=== PATIENT | male | born 1935 | race Caucasian/White ===

== ENCOUNTER 2019-08-10 17:01 | Inpatient (IN) | payer OTHER ==
[~2019-08-10] VITALS: Ht 182.9 cm; Wt 109.8 kg
[~2019-08-10 17:01] MED LIST: ATOR20TA65 PO; FINA5TAB41 PO; GLIP5TAB11 PO; LISI-613 PO; METF-446 PO; METO50TA18 PO
[2019-08-10 17:57] LABS: BASOPHILS % (AUTO) 0.3 % (0.0-5.0); HEMATOCRIT 43.2 % (42-54); LYMPHOCYTES % (AUTO) 10.6 % (21.0-51.0); MEAN CORPUSCULAR HEMOGLOBIN 27.7 pg (27.0-33.0); MEAN CORPUSCULAR HGB CONC 32.4 g/dL (32.0-36.0); MEAN CORPUSCULAR VOLUME 85.4 fL (79-99); MONOCYTES % (AUTO) 7.2 % (3.0-13.0); NEUTROPHILS % (AUTO) 80.4 % (40.0-77.0); PLATELET COUNT (AUTO) 152 K/uL (130-400); RED BLOOD CELL COUNT(AUTO) 5.06 MIL/uL (4.50-6.20); RED CELL DISTRIBUTION WIDTH 14.1 % (11.0-15.5); WHITE BLOOD COUNT (AUTO) 11.7 K/uL (4.8-10.8)
[2019-08-10 18:11] LABS: CARBON DIOXIDE 31 mmol/L (21-32); CHLORIDE 97 mmol/L (101-111); CREATININE 1.2 mg/dL (0.5-1.5); GLOMERULAR FILTR. RATE CALC 62 mL/min (>60); GLUCOSE,RANDOM 241 mg/dL (70-105); POTASSIUM 3.9 mmol/L (3.5-5.1); SODIUM SERUM 136 mmol/L (136-145); UREA NITROGEN, BLOOD 19 mg/dL (7-18)
[2019-08-10] MEDS ORDERED: CEFTRIAXONE SODIUM 2 GM VIAL ONE (18:12)
[2019-08-10 18:13] LABS: INR 0.92 (0.85-1.15); PARTIAL THROMBOPLASTIN TIME 25.9 SEC (26.3-35.5)
[2019-08-10 18:23] LABS: ALANINE AMINOTRANSFERASE 21 U/L (12-78); ALBUMIN 3.6 g/dL (3.5-5.0); ASPARTATE AMINOTRANSFERASE 18 U/L (10-37); BILIRUBIN,TOTAL 0.4 mg/dL (0.2-1.0); CREATINE KINASE, TOTAL 156 U/L (21-232); MYOGLOBIN 149 ng/mL (10-92); TROPONIN I < 0.04 ng/mL (0.00-0.06)
[2019-08-10 19:13] LABS: APPEARANCE,URINE Cloudy (CLEAR); BILIRUBIN,URINE Negative (NEGATIVE); COLOR,URINE Orange (YELLOW); GLUCOSE, URINE (UA) 500 mg/dL (NEGATIVE); KETONES,URINE Negative (NEGATIVE); LEUKOCYTE ESTERASE ,URINE Small (NEGATIVE); NITRATE,URINE Negative (NEGATIVE); OCCULT BLOOD,URINE Large (NEGATIVE); PROTEIN,URINE POS 2+ mg/dL (NEGATIVE)
[2019-08-10 19:40] LABS: RBC,URINE 26-50 /HPF (0-1)
[2019-08-10 19:41] LABS: BACTERIA,URINE Few /HPF (None Seen); SQUAMOUS EPITHELIAL CELL,UR Few /HPF (0-2); YEAST,URINE BUDDING Few /HPF (None Seen)
[2019-08-10] MEDS: CEFTRIAXONE SODIUM 1 GM IV SCH (22:00)
[2019-08-10] MEDS ORDERED: HYDRALAZINE HCL 20 MG/ML VIAL IV PRN (22:00)
[2019-08-10] MEDS ORDERED: ONDANSETRON HCL 4 MG/2 ML VIAL IV PRN (22:00)
[2019-08-10] MEDS ORDERED: LACTULOSE 20 GM/30 ML UDCUP PO PRN (22:00)
[2019-08-10] MEDS ORDERED: ACETAMINOPHEN 325 MG TAB PO PRN ×2 (22:00)
[2019-08-11] MEDS ORDERED: GLIP10TA9 PO (02:06)
[2019-08-11] MEDS ORDERED: METO50 PO (02:06)
[2019-08-11] MEDS ORDERED: HYDR25TA PO (02:06)
[2019-08-11] MEDS: SODIUM CHLORIDE 0.9% 1000ML 1,000 ML IV SCH ×2 (03:00→18:05)
[2019-08-11 04:00] VITALS: BP 154/65
[2019-08-11] MEDS: MORPHINE SULFATE 2 MG/ML 1ML SYG IV PRN ×5 (04:12→23:55)
[2019-08-11 06:01] LABS: BASOPHILS % (AUTO) 0.3 % (0.0-5.0); EOSINOPHILS % (AUTO) 1.8 % (0.0-8.0); HEMATOCRIT 38.7 % (42-54); LYMPHOCYTES % (AUTO) 16.7 % (21.0-51.0); MEAN CORPUSCULAR HEMOGLOBIN 26.8 pg (27.0-33.0); MEAN CORPUSCULAR HGB CONC 31.3 g/dL (32.0-36.0); MEAN CORPUSCULAR VOLUME 85.8 fL (79-99); MONOCYTES % (AUTO) 9.1 % (3.0-13.0); NEUTROPHILS % (AUTO) 71.6 % (40.0-77.0); PLATELET COUNT (AUTO) 142 K/uL (130-400); RED BLOOD CELL COUNT(AUTO) 4.51 MIL/uL (4.50-6.20); RED CELL DISTRIBUTION WIDTH 14.1 % (11.0-15.5); WHITE BLOOD COUNT (AUTO) 9.6 K/uL (4.8-10.8)
[2019-08-11 06:18] LABS: CREATININE 1.1 mg/dL (0.5-1.5); POTASSIUM 4.1 mmol/L (3.5-5.1)
[2019-08-11] MEDS: INSULIN HUMULIN R 100 UNIT/ML 3ML SQ SCH ×4 (06:45→21:07)
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
[2019-08-11 08:56] VITALS: BP 147/60
[2019-08-11] MEDS: ENOXAPARIN SODIUM 40 MG/0.4 ML SYRINGE SQ SCH (09:54)
[2019-08-11] MEDS: FAMOTIDINE 20MG TAB 20 MG TAB PO SCH ×2 (09:54→20:24)
[2019-08-11] MEDS: METFORMIN HCL 500 MG TABLET PO SCH ×2 (09:54→17:00)
--- NOTE | 2019-08-11 12:28 | NUR ---
LEILANI PLAN PATIENT IN COVID UNIT. MARGAUX WILL CONTINUE TO FOLLOW. Addendum: 08/11/19 at 1229 by HUNTER GRIDER RN CM Amended: Links added.
[2019-08-11 12:39] VITALS: BP 150/60
--- NOTE | 2019-08-11 13:00 | NUR ---
AMBULATION FROM BED TO RECLINER, GAIT SLOW WITH GAIT BELT AND UNSTEADY WITH FLACCID RT UPPER AND LOWER EXTREMITIES. PT DENIES DIZZINESS BUT DOES C/O RT RIB PAIN DUE TO RECENT FRACTURES. PT RESTING COMFORTABLY IN CHAIR. CALL LIGHT WITHIN REACH.
[2019-08-11] MEDS ORDERED: ACETAMINOPHEN-CODEINE 300/30MG TAB PO PRN (13:15)
[2019-08-11 16:31] VITALS: BP 149/64
--- NOTE | 2019-08-11 17:00 | NUR ---
AMBULATION FROM RECLINER TO BED, GAIT SLOW WITH GAIT BELT AND UNSTEADY WITH FLACCID RT UPPER AND LOWER EXTREMITIES. PT DENIES DIZZINESS BUT DOES C/O RT RIB PAIN DUE TO RECENT FRACTURES. PT RESTING COMFORTABLY IN BED. CALL LIGHT WITHIN REACH.
[2019-08-11 19:32] VITALS: BP 167/67
[2019-08-11] MEDS: CEFTRIAXONE SODIUM 1 GM IV SCH (20:24)
[2019-08-12] VITALS (7 sets, daily range): BP systolic 124–161; BP diastolic 56–69
[2019-08-12] MEDS: MORPHINE SULFATE 2 MG/ML 1ML SYG IV PRN (05:59)
[2019-08-12] MEDS: INSULIN HUMULIN R 100 UNIT/ML 3ML SQ SCH ×4 (06:06→20:53)
[2019-08-12] MEDS: FAMOTIDINE 20MG TAB 20 MG TAB PO SCH ×2 (09:47→20:31)
[2019-08-12] MEDS: HYDROCHLOROTHIAZIDE 25 MG TABLET PO SCH (09:47)
[2019-08-12] MEDS: BISACODYL 5 MG TABLET.DR PO SCH (09:47)
[2019-08-12] MEDS: METFORMIN HCL 500 MG TABLET PO SCH ×2 (09:47→17:42)
[2019-08-12] MEDS: METOPROLOL TARTRATE 50 MG TAB PO SCH ×2 (09:47→20:31)
[2019-08-12] MEDS: ENOXAPARIN SODIUM 40 MG/0.4 ML SYRINGE SQ SCH (09:48)
[2019-08-12] MEDS: SODIUM CHLORIDE 0.9% 1000ML 1,000 ML IV SCH (09:50)
[2019-08-12] MEDS: DOCUSATE SODIUM 100 MG CAP PO SCH ×2 (09:51→20:32)
--- NOTE | 2019-08-12 10:36 | NUR ---
dr. capps call and notified me that the orthopedic does not deal with the rib fracture and he is recommending the cardiothoracic surgeon. informed dr. solares about this concern.
--- NOTE | 2019-08-12 13:14 | NUR ---
DC PLAN CALLED PATIENT ROOM NO ANSWER. PERSON ON FACE SHEET IS A FRIEND. MARGAUX WILL CONTINUE TO FOLLOW. Addendum: 08/12/19 at 1315 by HUNTER GRIDER RN CM Amended: Links added.
[2019-08-12] MEDS: CEFTRIAXONE SODIUM 1 GM IV SCH (20:31)
[2019-08-12] MEDS: FINASTERIDE 5 MG TABLET PO SCH (20:31)
[2019-08-12] MEDS: ATORVASTATIN CALCIUM 20 MG TABLET PO SCH (20:32)
--- NOTE | 2019-08-12 21:00 | NUR ---
pt given pain medication. tylenol #3. pain in his ribcage area due to four rib fractures. able to stand up with 2 person assist. sob. crackles/rhonchi noted. pt has increased phlegm. white and mucoid like. Able to take medications well. on nasal cannula at 2lpm.
[2019-08-13 05:01] VITALS: BP 140/53
[2019-08-13] MEDS: INSULIN HUMULIN R 100 UNIT/ML 3ML SQ SCH ×4 (06:35→20:58)
[2019-08-13 07:21] LABS: HEMATOCRIT 37.4 % (42-54); MEAN CORPUSCULAR HEMOGLOBIN 27.9 pg (27.0-33.0); MEAN CORPUSCULAR HGB CONC 32.6 g/dL (32.0-36.0); MEAN CORPUSCULAR VOLUME 85.6 fL (79-99); PLATELET COUNT (AUTO) 140 K/uL (130-400); RED BLOOD CELL COUNT(AUTO) 4.37 MIL/uL (4.50-6.20); RED CELL DISTRIBUTION WIDTH 13.7 % (11.0-15.5); WHITE BLOOD COUNT (AUTO) 10.6 K/uL (4.8-10.8)
[2019-08-13 07:28] LABS: POTASSIUM 3.8 mmol/L (3.5-5.1)
[2019-08-13 07:55] LABS: EOSINOPHILS % (MANUAL) 1 % (1-6); LYMPHOCYTES % (MANUAL) 14 % (22-44); MAN.DIFF COMMENT-IMPRESSION MANUAL DIFFERENTIAL; MONOCYTES % (MANUAL) 6 % (2-9); PLATELET MORPHOLOGY COMMENT ADEQUATE; SEGMENTED NEUTROPHILS % 79 % (40-70)
[2019-08-13 08:32] VITALS: BP 144/56
[2019-08-13] MEDS: METOPROLOL TARTRATE 50 MG TAB PO SCH ×2 (09:25→20:31)
[2019-08-13] MEDS: FAMOTIDINE 20MG TAB 20 MG TAB PO SCH ×2 (09:25→20:31)
[2019-08-13] MEDS: DOCUSATE SODIUM 100 MG CAP PO SCH ×3 (09:25→21:13)
[2019-08-13] MEDS: METFORMIN HCL 500 MG TABLET PO SCH ×2 (09:25→16:21)
[2019-08-13] MEDS: HYDROCHLOROTHIAZIDE 25 MG TABLET PO SCH (09:26)
[2019-08-13] MEDS: BISACODYL 5 MG TABLET.DR PO SCH (09:26)
[2019-08-13] MEDS: SODIUM CHLORIDE 0.9% 1000ML 1,000 ML IV SCH (09:27)
[2019-08-13] MEDS: ENOXAPARIN SODIUM 40 MG/0.4 ML SYRINGE SQ SCH (09:27)
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
--- NOTE | 2019-08-13 12:50 | NUR ---
LEILANI ADAIR KIANA ABERNATHY [phone] CALLED BACK. SAID THAT HE IS A FRIEND THAT HELP HIM OUT FROM TIME TO TIME. WHEN EVER HE FALLS HE CALLS HIM TO GO HELP HIM. PATIENT ONLY HAS ONE SON THAT TALKS TO HIM BUT HE LIVES IN [facility]. DAD'S CALLED BACK SAID THEY WILL CALL HIM WHEN HE DISCHARGES. LET KNOW THAT PATIENT REFUSED SNF. LET PATIENT ADVOCATE KNOW ABOUT CLOTHING. ARRANGED TO HAVE DELIVERED TODAY AROUND 2PM. Addendum: 08/13/19 at 1257 by HUNTER GRIDER RN CM Amended: Links added.
[2019-08-13 13:48] VITALS: BP 130/52
[2019-08-13] MEDS: GLIPIZIDE 5 MG TABLET PO SCH (16:21)
[2019-08-13 16:30] VITALS: BP 141/49
[2019-08-13 19:53] VITALS: BP 143/51
[2019-08-13] MEDS: CEFTRIAXONE SODIUM 1 GM IV SCH (20:30)
[2019-08-13] MEDS: FINASTERIDE 5 MG TABLET PO SCH (20:30)
[2019-08-13] MEDS: ATORVASTATIN CALCIUM 20 MG TABLET PO SCH (20:31)
[2019-08-13 23:45] VITALS: BP 137/62
[2019-08-14 04:51] VITALS: BP 144/50
[2019-08-14 04:56] LABS: BASOPHILS % (AUTO) 0.3 % (0.0-5.0); EOSINOPHILS % (AUTO) 2.3 % (0.0-8.0); HEMATOCRIT 37.7 % (42-54); LYMPHOCYTES % (AUTO) 16.5 % (21.0-51.0); MEAN CORPUSCULAR HEMOGLOBIN 26.9 pg (27.0-33.0); MEAN CORPUSCULAR HGB CONC 31.8 g/dL (32.0-36.0); MEAN CORPUSCULAR VOLUME 84.5 fL (79-99); MONOCYTES % (AUTO) 7.3 % (3.0-13.0); PLATELET COUNT (AUTO) 176 K/uL (130-400); RED BLOOD CELL COUNT(AUTO) 4.46 MIL/uL (4.50-6.20); RED CELL DISTRIBUTION WIDTH 13.5 % (11.0-15.5); WHITE BLOOD COUNT (AUTO) 10.6 K/uL (4.8-10.8)
[2019-08-14] MEDS: INSULIN HUMULIN R 100 UNIT/ML 3ML SQ SCH ×4 (04:56→21:00)
--- NOTE | 2019-08-14 05:00 | NUR ---
PT DID NOT WANT INSULIN, OR MEDS FOR THE AM. HE STATED HE WANTED TO SKIP THEM BECAUSE HE WANTS TO SLEEP. HE WAS ABLE TO STAND FOR DAILY WEIGHT. PT HAS DEMONSTRATED IMPROVEMENT. HIS ACTIVITY LEVEL IS INCREASING.
[2019-08-14 05:25] LABS: POTASSIUM 3.7 mmol/L (3.5-5.1)
[2019-08-14 05:30] LABS: HEMOGLOBIN A1C 9.4 % (4.0-6.0)
[2019-08-14] MEDS: FAMOTIDINE 20MG TAB 20 MG TAB PO SCH ×2 (09:03→21:04)
[2019-08-14] MEDS: GLIPIZIDE 5 MG TABLET PO SCH ×2 (09:03→16:24)
[2019-08-14] MEDS: METOPROLOL TARTRATE 50 MG TAB PO SCH ×2 (09:03→21:04)
[2019-08-14] MEDS: BISACODYL 5 MG TABLET.DR PO SCH (09:03)
[2019-08-14] MEDS: HYDROCHLOROTHIAZIDE 25 MG TABLET PO SCH (09:03)
[2019-08-14] MEDS: DOCUSATE SODIUM 100 MG CAP PO SCH ×2 (09:03→21:04)
[2019-08-14] MEDS: METFORMIN HCL 500 MG TABLET PO SCH ×2 (09:03→16:24)
[2019-08-14] MEDS: ENOXAPARIN SODIUM 40 MG/0.4 ML SYRINGE SQ SCH (09:04)
[2019-08-14 09:05] VITALS: BP 147/59
[2019-08-14 12:15] VITALS: BP 135/54
--- NOTE | 2019-08-14 13:51 | NUR ---
LEILANI GILLILAND FRIEND CALLED TO LET CM KNOW THAT PATIENT POWER IS TURNED OFF. TRIED CALLING THE ROOM SEVERAL TIMES TO ASK WHAT THE PLAN IS. SINCE HE WANTS TO GO HOME IS HE CALLING TO TURN LIGHT ON OR DO WE NEED TO SET UP SNF WHILE HE GETS EVERYTHING SORTED OUT. CALLED LET CHARGE NURSE KNOW OF SITUATION AND TO ASK PATIENT WHAT THE PLAN IS. Addendum: 08/14/19 at 1354 by HUNTER GRIDER RN CM Amended: Links added.
--- NOTE | 2019-08-14 14:30 | NUR ---
ASSISTED PT. TO [facility]. PT. HAD LARGE, SOFT, BROWN, BOWEL MOVEMENT. CARE RENDERED AND ASSISTED BACK TO RECLINER PER PT. REQUEST. CALL LIGHT WITHIN REACH. Addendum: 08/15/19 at 1302 by SAMANTHA BARRON RN RN PLACED PILLOW FOR PT. TO SIT ON FOR COMFORT.
[2019-08-14 15:00] VITALS: BP 154/81
[2019-08-14 20:12] VITALS: BP 151/55
[2019-08-14] MEDS: FINASTERIDE 5 MG TABLET PO SCH (21:04)
[2019-08-14] MEDS: ATORVASTATIN CALCIUM 20 MG TABLET PO SCH (21:04)
[2019-08-14] MEDS: CEFTRIAXONE SODIUM 1 GM IV SCH (21:04)
[2019-08-14 23:58] VITALS: BP 130/54
[2019-08-15 04:27] VITALS: BP 126/54
[2019-08-15] MEDS: GLIPIZIDE 5 MG TABLET PO SCH ×2 (06:27→16:29)
[2019-08-15] MEDS: INSULIN HUMULIN R 100 UNIT/ML 3ML SQ SCH ×4 (06:36→21:00)
[2019-08-15 08:00] VITALS: BP 133/43
[2019-08-15] MEDS: DOCUSATE SODIUM 100 MG CAP PO SCH ×2 (08:38→21:22)
[2019-08-15] MEDS: METOPROLOL TARTRATE 50 MG TAB PO SCH ×2 (08:38→21:22)
[2019-08-15] MEDS: BISACODYL 5 MG TABLET.DR PO SCH (08:38)
[2019-08-15] MEDS: FAMOTIDINE 20MG TAB 20 MG TAB PO SCH ×2 (08:38→21:22)
[2019-08-15] MEDS: METFORMIN HCL 500 MG TABLET PO SCH ×2 (08:38→16:29)
[2019-08-15] MEDS: HYDROCHLOROTHIAZIDE 25 MG TABLET PO SCH (08:38)
[2019-08-15] MEDS: ENOXAPARIN SODIUM 40 MG/0.4 ML SYRINGE SQ SCH (08:39)
--- NOTE | 2019-08-15 10:35 | NUR ---
ASSISTED BY THIS NURSE AND Geraldine MORALES, PCP FROM RECLINER TO [facility]. SOFT, BROWN BOWEL MOVEMENT NOTED; CARE RENDERED AND ASSISTED BACK TO RECLINER PER PT. REQUEST. ALLEVYN PATCH PLACED TO BUTTOCKS ST II DECUBITIS BEFORE ASSISTED TO RECLINER WELL A PILLOW. CALL LIGHT WITHIN REACH.
--- NOTE | 2019-08-15 10:45 | NUR ---
TRANSFERRED TO ROOM 405 VIA RECLINER WITH BELONGINGS. ACCOMPANIED BY THIS NURSE.
[2019-08-15 11:49] VITALS: BP 139/53
--- NOTE | 2019-08-15 15:39 | NUR ---
cm note met with patient and informed of md orders for snf for rehab. pt in agreement and states that he wants [facility] due to he has been there in the past.choice letter obtained. referral faxed to [facility] k[facility]. pending evaluation.
[2019-08-15 16:00] VITALS: BP 158/60
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
[2019-08-15 20:04] VITALS: BP 163/61
[2019-08-15] MEDS: ATORVASTATIN CALCIUM 20 MG TABLET PO SCH (21:22)
[2019-08-15] MEDS: FINASTERIDE 5 MG TABLET PO SCH (21:22)
[2019-08-15] MEDS: CEFTRIAXONE SODIUM 1 GM IV SCH (21:22)
[2019-08-15 23:31] VITALS: BP 153/65
[2019-08-16] MEDS: ACETAMINOPHEN-CODEINE 300/30MG TAB PO PRN (03:13)
[2019-08-16 03:37] VITALS: BP 146/69
[2019-08-16] MEDS: GLIPIZIDE 5 MG TABLET PO SCH ×2 (06:29→11:47)
[2019-08-16] MEDS: INSULIN HUMULIN R 100 UNIT/ML 3ML SQ SCH ×4 (06:30→21:00)
[2019-08-16 08:00] VITALS: BP 153/74
[2019-08-16 11:42] VITALS: BP 162/58
[2019-08-16] MEDS: ENOXAPARIN SODIUM 40 MG/0.4 ML SYRINGE SQ SCH (11:43)
[2019-08-16] MEDS: FAMOTIDINE 20MG TAB 20 MG TAB PO SCH ×2 (11:45→21:40)
[2019-08-16] MEDS: METOPROLOL TARTRATE 50 MG TAB PO SCH ×2 (11:46→21:39)
[2019-08-16] MEDS: DOCUSATE SODIUM 100 MG CAP PO SCH ×2 (11:46→21:40)
[2019-08-16] MEDS: METFORMIN HCL 500 MG TABLET PO SCH ×2 (11:46→16:54)
[2019-08-16] MEDS: HYDROCHLOROTHIAZIDE 25 MG TABLET PO SCH (11:46)
[2019-08-16] MEDS: BISACODYL 5 MG TABLET.DR PO SCH (11:50)
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
[2019-08-16 15:56] VITALS: BP 141/58
[2019-08-16 20:01] VITALS: BP 144/44
[2019-08-16] MEDS: ATORVASTATIN CALCIUM 20 MG TABLET PO SCH (21:39)
[2019-08-16] MEDS: CEFTRIAXONE SODIUM 1 GM IV SCH (21:39)
[2019-08-16] MEDS: FINASTERIDE 5 MG TABLET PO SCH (21:40)
[2019-08-16 23:30] VITALS: BP 134/51
[2019-08-17] MEDS: ACETAMINOPHEN-CODEINE 300/30MG TAB PO PRN (02:01)
--- NOTE | 2019-08-17 02:01 | NUR ---
UP IN CHAIR Pt got up from bed to chair with assistance,he states he can't sleep in bed for a long time.Complained of pain to right ribcage and rt arm,medicated with Tylenol #3.
[2019-08-17 04:54] LABS: BASOPHILS % (AUTO) 0.4 % (0.0-5.0); EOSINOPHILS % (AUTO) 2.5 % (0.0-8.0); HEMATOCRIT 35.1 % (42-54); LYMPHOCYTES % (AUTO) 20.2 % (21.0-51.0); MEAN CORPUSCULAR HEMOGLOBIN 27.6 pg (27.0-33.0); MEAN CORPUSCULAR HGB CONC 32.5 g/dL (32.0-36.0); MONOCYTES % (AUTO) 9.4 % (3.0-13.0); NEUTROPHILS % (AUTO) 66.8 % (40.0-77.0); PLATELET COUNT (AUTO) 181 K/uL (130-400); RED BLOOD CELL COUNT(AUTO) 4.13 MIL/uL (4.50-6.20); RED CELL DISTRIBUTION WIDTH 13.2 % (11.0-15.5); WHITE BLOOD COUNT (AUTO) 8.3 K/uL (4.8-10.8)
[2019-08-17 04:58] LABS: CREATININE 0.9 mg/dL (0.5-1.5); POTASSIUM 3.7 mmol/L (3.5-5.1)
[2019-08-17] MEDS: INSULIN HUMULIN R 100 UNIT/ML 3ML SQ SCH ×3 (05:56→21:00)
[2019-08-17] MEDS: GLIPIZIDE 5 MG TABLET PO SCH ×2 (06:11→09:06)
[2019-08-17 07:30] VITALS: BP 148/59
[2019-08-17] MEDS: HYDROCHLOROTHIAZIDE 25 MG TABLET PO SCH (09:05)
[2019-08-17] MEDS: DOCUSATE SODIUM 100 MG CAP PO SCH ×2 (09:05→21:07)
[2019-08-17] MEDS: BISACODYL 5 MG TABLET.DR PO SCH (09:05)
[2019-08-17] MEDS: FAMOTIDINE 20MG TAB 20 MG TAB PO SCH ×2 (09:06→21:07)
[2019-08-17] MEDS: METFORMIN HCL 500 MG TABLET PO SCH ×2 (09:06→21:07)
[2019-08-17] MEDS: METOPROLOL TARTRATE 50 MG TAB PO SCH ×2 (09:07→21:06)
[2019-08-17] MEDS: ENOXAPARIN SODIUM 40 MG/0.4 ML SYRINGE SQ SCH (09:07)
--- NOTE | 2019-08-17 10:11 | NUR ---
CM NOTE/COVID ASSESSMENT/SNF FOLLOW UP SIGNED COVID FORM EMAILED TO [facility]. PER SHAYY, PENDING AUTHORIZATION FOR SNF, WILL FOLLOW UP AT LATER TIME.
[2019-08-17 11:00] VITALS: BP 131/49
[2019-08-17 16:00] VITALS: BP 145/61
[2019-08-17 19:00] VITALS: BP 156/64
[2019-08-17] MEDS: ATORVASTATIN CALCIUM 20 MG TABLET PO SCH (21:07)
[2019-08-17] MEDS: FINASTERIDE 5 MG TABLET PO SCH (21:07)
[2019-08-17] MEDS: CEFTRIAXONE SODIUM 1 GM IV SCH (21:08)
[2019-08-18] VITALS: BP 148/57
[2019-08-18 04:00] VITALS: BP 140/56
[2019-08-18 05:19] LABS: BASOPHILS % (AUTO) 0.5 % (0.0-5.0); EOSINOPHILS % (AUTO) 2.4 % (0.0-8.0); HEMATOCRIT 35.9 % (42-54); LYMPHOCYTES % (AUTO) 18.5 % (21.0-51.0); MEAN CORPUSCULAR HEMOGLOBIN 27.5 pg (27.0-33.0); MEAN CORPUSCULAR HGB CONC 32.3 g/dL (32.0-36.0); MEAN CORPUSCULAR VOLUME 85.1 fL (79-99); MONOCYTES % (AUTO) 8.3 % (3.0-13.0); NEUTROPHILS % (AUTO) 69.5 % (40.0-77.0); PLATELET COUNT (AUTO) 177 K/uL (130-400); RED BLOOD CELL COUNT(AUTO) 4.22 MIL/uL (4.50-6.20); RED CELL DISTRIBUTION WIDTH 13.2 % (11.0-15.5); WHITE BLOOD COUNT (AUTO) 8.6 K/uL (4.8-10.8)
[2019-08-18 05:27] LABS: CREATININE 1.1 mg/dL (0.5-1.5); POTASSIUM 3.7 mmol/L (3.5-5.1)
[2019-08-18] MEDS: GLIPIZIDE 5 MG TABLET PO SCH (06:17)
[2019-08-18] MEDS: INSULIN HUMULIN R 100 UNIT/ML 3ML SQ SCH (06:19)
[2019-08-18 08:36] VITALS: BP 138/66
--- NOTE | 2019-08-18 09:44 | NUR ---
[facility] APPROVED PER [facility], AUTHORIZATION RECEIVED. PRIMARY NURSE TO BE MADE AWARE.
[2019-08-18] MEDS: HYDROCHLOROTHIAZIDE 25 MG TABLET PO SCH (09:59)
[2019-08-18] MEDS: FAMOTIDINE 20MG TAB 20 MG TAB PO SCH (09:59)
[2019-08-18] MEDS: BISACODYL 5 MG TABLET.DR PO SCH (09:59)
[2019-08-18] MEDS: METOPROLOL TARTRATE 50 MG TAB PO SCH (10:00)
[2019-08-18] MEDS: DOCUSATE SODIUM 100 MG CAP PO SCH (10:00)
[2019-08-18] MEDS: ENOXAPARIN SODIUM 40 MG/0.4 ML SYRINGE SQ SCH (10:00)
[2019-08-18] MEDS: METFORMIN HCL 500 MG TABLET PO SCH (10:14)
[2019-08-18 12:19] VITALS: BP 141/64
== END 2019-08-18 17:45 | DRG 184 ==
LOC: EDH 17:01 → EDHIP 22:00 → 2DH 23:23 → 4BH 08-15 10:56
PROVIDERS: ADMIT Internal Medicine; ATTEND Internal Medicine
DX: S22.41XA Multiple fractures of ribs, right side, initial encounter for closed fracture (principal); N39.0 Urinary tract infection, site not specified; E87.2 Acidosis; I69.351 Hemiplegia and hemiparesis following cerebral infarction affecting right dominant side; E11.9 Type 2 diabetes mellitus without complications; I10 Essential (primary) hypertension; N40.0 Benign prostatic hyperplasia without lower urinary tract symptoms; R32 Unspecified urinary incontinence; Z20.828 Contact with and (suspected) exposure to other viral communicable diseases; W01.0XXA Fall on same level from slipping, tripping and stumbling without subsequent striking against object, initial encounter; Z90.79 Acquired absence of other genital organ(s); Y93.89 Activity, other specified; Y92.091 Bathroom in other non-institutional residence as the place of occurrence of the external cause; Y99.8 Other external cause status; Z83.3 Family history of diabetes mellitus; Z82.5 Family history of asthma and other chronic lower respiratory diseases; Z82.49 Family history of ischemic heart disease and other diseases of the circulatory system
CPT/HCPCS: 36415; 71101; 73080; 80048; 80053; 81001; 82550; 82948; 83036; 83605; 83874; 84145; 84484; 85025; 85610; 85730; 87040; 87088; 87633; 87635; 87804; 93005; 97039; G0378; J0696; J1650; J1815; J7030

== ENCOUNTER → 2019-09-08 | Outpatient (CLI) | payer OTHER | END | disposition home or self-care (01) | LOC: OIH 10:14 | PROVIDERS: ATTEND Family Medicine | DX: S22.43XD Multiple fractures of ribs, bilateral, subsequent encounter for fracture with routine healing (principal); I12.9 Hypertensive chronic kidney disease with stage 1 through stage 4 chronic kidney disease, or unspecified chronic kidney disease; I70.0 Atherosclerosis of aorta; N18.9 Chronic kidney disease, unspecified; R07.81 Pleurodynia; X58.XXXD Exposure to other specified factors, subsequent encounter ==